=== PATIENT | female | born 1970 | race Caucasian/White ===

== ENCOUNTER 2016-08-06 01:58 | Emergency (ER) | payer MEDICAID ==
[2016-08-06 02:16] VITALS: TEMP 98.7; BMI 31.2
[2016-08-06] MEDS ORDERED: SODIUM CHLORIDE 0.9% 3 ML FLUSH FLUSH PRN (02:17)
[2016-08-06] MEDS ORDERED: MORPHINE 4 MG/ML INJECTION IV ONE (02:18)
[2016-08-06] MEDS ORDERED: NS 1,000 ML IV ONE (02:18)
--- NOTE | 2016-08-06 02:23 | EDPRACDOC ---
- General Information Chief Complaint: Abdominal Pain Stated Complaint: ABD PAIN Time Seen by Provider: 08/06/16 02:12 Information Source: Patient, Family Mode Of Arrival: Car Home Medications: Home Medications Omeprazole [Prilosec] 20 mg PO DAILY 08/12/14 Diclofenac Sodium [Voltaren 1% Topical Gel] 1 tea .ROUTE DAILY PRN 03/16/15 Hydrocodone Bit/Acetaminophen [[place] 7.5-325 Tablet] 1.5 - 2 tabs PO Q6H PRN 06/29 Hydrocodone/Acetaminophen [Lortab 5-325 mg Tablet] 1 each PO Q4H PRN #15 tablet 01/11/16 Ondansetron [Zofran Odt] 4 mg PO Q6H PRN #10 tab.rapdis 01/11/16 Phenazopyridine HCl [Pyridium] 200 mg PO TID #6 tablet 01/11/16 Sulfamethoxazole/Trimethoprim [Bactrim Ds Tablet] 1 tab PO BID #14 tab 01/11/16 Butalb/Acetaminophen/Caffeine [Fioricet 50-300-40 mg Capsule] 1 each PO Q6-8H # 20 capsule 02/26/16 Ciprofloxacin HCl [Cipro] 500 mg PO BID #20 tab 08/06/16 Ketorolac Tromethamine [Toradol] 10 mg PO Q6H PRN #20 tab 08/06/16 Phenazopyridine [Pyridium] 100 mg PO TID #14 tab 08/06/16 Allergies/Adverse Reactions: Allergies Allergy/AdvReac Type Severity Reaction Status Date / Time tetracycline [Tetracycline] Allergy Severe Nausea/Vomi Verified 02/25/16 22:15 ting - History of Present Illness Onset: 2 DAYS HPI: PT PRESENTS WITH SUPRAPUBIC PAIN WITH PRESSURE AND URINARY FREQUENCY LIKE PRIOR UTI'S. Pain Location: Reports: Suprapubic Pain Context: Reports: Spontaneous Pain Severity: Moderate Pain Quality: Reports: Aching Last Menstrual Period: LAST MONTH : (UNKNOWN) Control Method: Reports: IUD Blood Type: Unknown Adult Abdominal History: Denies: Urolithiasis Female Abdominal History: Denies: UTI, Ectopic, PID, Urolithiasis Female Associated Signs & Symptoms: Denies: Vomiting, Diarrhea, Fever Oral Intake: Normal Urinary Output: Normal ED Past Medical History - History Reviewed Yes Nurses notes reviewed and agree except as marked - Patient Medical History GI/ History: Reports: Gastroesophageal Reflux. Denies: Urinary Tract Infection Psychological History: Denies: Depression Additional Past Medical History: CHRONIC BACK PAIN. VERTEBRAL FX X 2 Surgical History: Reports: Other (CSXN) - Social Medical History Smoking Status: Heavy tobacco smoker (5 or more cigarettes/day or daily pipe/ cigar) Lives With: Family Lives In: Home EDM Review of Systems - Review of Systems ROS Negative Except as Marked: Yes All systems reviewed and were negative except as marked Constitutional: negative: Fever Respiratory: negative: Shortness of Breath Cardiovascular: negative: Chest Pain Gastrointestinal: Nausea, Pain. negative: Vomiting Genitourinary: Dysuria, Flank Pain (LEFT) - Physical Exam Constitutional: Alert Oriented to: Time, Person, Place Last recorded Vital Signs: Last Vital Signs Temp 98.7 F 08/06/16 02:10 Pulse 98 08/06/16 02:10 Resp 20 08/06/16 02:10 BP 154/80 08/06/16 02:10 Pulse Ox 97 08/06/16 02:10 Oxygen Pulse Oxygen Saturation 97 O2 Device Room Air Oxygen Flow Rate Fraction of Inspired Oxygen ( FIO2) - HEENT Head: negative: Deformity, Laceration Eye Exam: negative: Conjunctival Injection, Pale Conjunctiva Oropharynx: negative: Membranes Dry Nose: negative: Congestion, Discharge Neck: negative: Limited ROM - Respiratory/Cardiovascular Respiratory: Normal - CTA. negative: Accessory Muscle Use, Diminished, Tachypnea Cardiovascular: negative: Bradycardia, Tachycardia, Irregular - GI Auscultation: Normal Palpation: Normal Tenderness: Mild, LUQ. negative: Guarding, Rebound, Rigidity - Musculoskeletal Extremities: Radial Pulse (PALPABLE) - Integumentary Skin: Warm, Dry - Neurologic Memory Impaired: Normal Motor Function: Normal Mood Description: Anxious Thought: Coherent Perception: Normal - Results 08/06/16 02:05 08/06/16 02:05 WBC 20.0 xk/uL (3.8-10.8) H 08/06/16 02:05 RBC 4.64 xM/uL (4.20-5.40) 08/06/16 02:05 Hgb 14.2 g/dL (12.0-16.0) 08/06/16 02:05 Hct 41.5 % (36-47) 08/06/16 02:05 MCV 89 fL (81-99) 08/06/16 02:05 MCH 30.6 pg (27-32) 08/06/16 02:05 MCHC 34.2 g/dl (33-36) 08/06/16 02:05 RDW 12.6 % (11.5-14.5) 08/06/16 02:05 Plt Count 223 xk/uL (130-400) 08/06/16 02:05 MPV 8.6 fL (7.4-10.4) 08/06/16 02:05 Neut % (Auto) 65.4 % (45-76) 08/06/16 02:05 Lymph % (Auto) 21.7 % (17-44) 08/06/16 02:05 [place] % (Auto) 10.8 % (3-10) H 08/06/16 02:05 Eos % (Auto) 1.0 % (0-5) 08/06/16 02:05 Baso % (Auto) 1.1 % (0-2) 08/06/16 02:05 Absolute Neuts (auto) 13.00 xk/uL (1.7-8.2) H 08/06/16 02:05 Absolute Lymphs (auto) 4.20 xk/uL (0.65-4.75) 08/06/16 02:05 Sodium 139 mEq/L (137-146) 08/06/16 02:05 Potassium 3.5 mEq/L (3.5-5.1) 08/06/16 02:05 Chloride 107 mEq/L (98-107) 08/06/16 02:05 Carbon Dioxide 23 mMOL/L (22-33) 08/06/16 02:05 Anion Gap 13 mEq/L (8-16) 08/06/16 02:05 BUN 13 MG/DL (7-17) 08/06/16 02:05 Creatinine 0.70 MG/DL (0.52-1.04) 08/06/16 02:05 Estimated GFR (MDRD) > 60 mL/min (>=60) 08/06/16 02:05 Glucose 122 MG/DL (70-99) H 08/06/16 02:05 Calculated Osmolality 269 MOs/Kg (270-290) L 08/06/16 02:05 Calcium 9.0 MG/DL (8.4-10.2) 08/06/16 02:05 Corrected Calcium 9.4 MG/DL (8.4-10.2) 08/06/16 02:05 Total Bilirubin 0.4 MG/DL (0.2-1.3) 08/06/16 02:05 AST 17 IU/L (14-36) 08/06/16 02:05 ALT 29 IU/L (9-52) 08/06/16 02:05 Alkaline Phosphatase 83 IU/L (38-126) 08/06/16 02:05 Total Protein 7.2 G/DL (6.3-8.2) 08/06/16 02:05 Albumin 3.6 G/DL (3.5-5.0) 08/06/16 02:05 Urine Color Yellow 08/06/16 02:05 Urine Clarity Cldy 08/06/16 02:05 Urine pH 5.0 (5.0-8.0) 08/06/16 02:05 Ur Specific [place] 1.015 (1.003-1.035) 08/06/16 02:05 Urine Protein 1+ (NEG/TRACE) H 08/06/16 02:05 Urine Glucose (UA) Neg (NEGATIVE) 08/06/16 02:05 Urine Ketones Neg (NEGATIVE) 08/06/16 02:05 Urine Occult Blood 1+ (NEG/TRACE) H 08/06/16 02:05 Urine Nitrite Neg (NEGATIVE) 08/06/16 02:05 Urine Bilirubin Neg (NEGATIVE) 08/06/16 02:05 Urine Urobilinogen 0.2 MG/DL (0-1) 08/06/16 02:05 Ur Leukocyte Esterase 3+ (NEGATIVE) H 08/06/16 02:05 Urine RBC 10-20 (0-5) H 08/06/16 02:05 Urine WBC Tntc (0-5) H 08/06/16 02:05 Ur Epithelial Cells 3+ 08/06/16 02:05 Urine Bacteria 2+ (NEG/FEW) H 08/06/16 02:05 Urine Test Neg (NEGATIVE) 08/06/16 02:05 Lab Results 08/06/16 08/06/16 08/06/16 02:05 02:05 02:05 WBC 20.0 H RBC 4.64 Hgb 14.2 Hct 41.5 MCV 89 MCH 30.6 MCHC 34.2 RDW 12.6 Plt Count 223 MPV 8.6 Neut % (Auto) 65.4 Lymph % (Auto) 21.7 [place] % (Auto) 10.8 H Eos % (Auto) 1.0 Baso % (Auto) 1.1 Absolute Neuts (auto) 13.00 H Absolute Lymphs (auto) 4.20 Sodium Potassium Chloride Carbon Dioxide Anion Gap BUN Creatinine Estimated GFR (MDRD) Glucose Calculated Osmolality Calcium Corrected Calcium Total Bilirubin AST ALT Alkaline Phosphatase Total Protein Albumin Urine Color Yellow Urine Clarity Cldy Urine pH 5.0 Ur Specific [place] 1.015 Urine Protein 1+ H Urine Glucose (UA) Neg Urine Ketones Neg Urine Occult Blood 1+ H Urine Nitrite Neg Urine Bilirubin Neg Urine Urobilinogen 0.2 Ur Leukocyte Esterase 3+ H Urine RBC 10-20 H Urine WBC Tntc H Ur Epithelial Cells 3+ Urine Bacteria 2+ H Urine Test Neg 08/06/16 02:05 WBC RBC Hgb Hct MCV MCH MCHC RDW Plt Count MPV Neut % (Auto) Lymph % (Auto) [place] % (Auto) Eos % (Auto) Baso % (Auto) Absolute Neuts (auto) Absolute Lymphs (auto) Sodium 139 Potassium 3.5 Chloride 107 Carbon Dioxide 23 Anion Gap 13 BUN 13 Creatinine 0.70 Estimated GFR (MDRD) > 60 Glucose 122 H Calculated Osmolality 269 L Calcium 9.0 Corrected Calcium 9.4 Total Bilirubin 0.4 AST 17 ALT 29 Alkaline Phosphatase 83 Total Protein 7.2 Albumin 3.6 Urine Color Urine Clarity Urine pH Ur Specific [place] Urine Protein Urine Glucose (UA) Urine Ketones Urine Occult Blood Urine Nitrite Urine Bilirubin Urine Urobilinogen Ur Leukocyte Esterase Urine RBC Urine WBC Ur Epithelial Cells Urine Bacteria Urine Test Decision Time to Discharge: 03:04 - Departure Yes I personally saw and evaluated the patient. Disposition: Home Condition: Stable Final Diagnosis: UTI (urinary tract infection) Qualifiers: Urinary tract infection type: site unspecified Hematuria presence: without hematuria Qualified Code(s): N39.0 - Urinary tract infection, site not specified Instructions: Urinary Tract Infection in Women (ED), Dysuria Education/Counseling Given To: Patient Education/Counseling Given Regarding: Diagnosis, Treatment, Prognosis, Follow Up Referrals: Ruyd Sanchez MD [Primary Care Provider] - Call for Appointment Prescriptions: Ciprofloxacin HCl [Cipro] 500 mg PO BID #20 tab Ketorolac Tromethamine [Toradol] 10 mg PO Q6H PRN #20 tab PRN Reason: Pain Phenazopyridine [Pyridium] 100 mg PO TID #14 tab
[2016-08-06 02:44] LABS: AUTOMATED BASOPHIL 1.1 % (0-2); AUTOMATED LYMPH 21.7 % (17-44); AUTOMATED MONOCYTE 10.8 % (3-10); AUTOMATED NEUTROPHIL 65.4 % (45-76); MPV 8.6 fL (7.4-10.4)
[2016-08-06 02:47] LABS: WBC/URINE TNTC (0-5)
[2016-08-06 02:48] LABS: LEUKOCYTES/URINE 3+ (NEGATIVE); NITRITE/URINE NEG (NEGATIVE); URINE OCCULT BLOOD 1+ (NEG/TRACE)
[2016-08-06 02:55] LABS: BLOOD UREA NITROGEN 13 MG/DL (7-17); CALC CORRECTED 9.4 MG/DL (8.4-10.2); CALCULATED OSMOLALITY 269 MOs/Kg (270-290); CHLORIDE 107 mEq/L (98-107); GLUCOSE 122 MG/DL (70-99); SODIUM LEVEL 139 mEq/L (137-146); TOTAL PROTEIN 7.2 G/DL (6.3-8.2)
[2016-08-06] MEDS ORDERED: CIPROFLOXACIN HCL 500 MG TAB PO STA (03:02)
[2016-08-06] MEDS ORDERED: PHENAZOPYRIDINE 100 MG TAB PO STA (03:04)
[2016-08-06] MEDS ORDERED: KETOROLAC TROMETH 30 MG/ML VIAL IV STA (03:30)
[2016-08-06 03:46] VITALS: BP 150/82; PULSE 86
[2016-08-06] MEDS ORDERED: SODIUM CHLORIDE 0.9% 3 ML FLUSH FLUSH SCH (06:00)
[2016-08-06] MEDS ORDERED: LORAZEPAM 2 MG/ML VIAL ONE (09:10)
== END 2016-08-06 03:46 | disposition home or self-care (01) ==
LOC: ED 01:58
DX: N39.0 Urinary tract infection, site not specified (principal)
CPT/HCPCS: 36415; 80053; 81001; 81025; 85025; 96361; 96374; 96375; 99283; J1885; J2270; J3490; J2060